=== PATIENT | female | born 1955 | race African-American/Black ===

== ENCOUNTER 2018-07-28 06:50 | Day surgery (SDC) | payer OTHER ==
[~2018-07-28] VITALS: Ht 160 cm; Wt 73.6 kg
--- NOTE | ~2018-07-28 | OP ---
PATIENT NAME: YOSELYN VALDES MEDICAL RECORD: [id number] :51 LOCATION:[facility] ADMISSION DATE: SURGEON: KELLY CARROLL DO DATE OF OPERATION: 07/28/2018 PROCEDURE: Colonoscopy. INDICATIONS FOR PROCEDURE: Colorectal cancer screening. SCOPE: Olympus video pediatric colonoscope. MEDICATIONS: Propofol 220 mg IV per anesthesia. WITHDRAWAL TIME: 13 minutes. ESTIMATED BLOOD LOSS: None. COMPLICATIONS: None. FINDINGS: Informed consent was given. The patient was made comfortable with the above medication. After reaching an adequate level of sedation by slow IV push, the patient was placed on her left side. A digital rectal examination was performed and was normal. The endoscope was then advanced under direct visualization through the rectum to the cecum, confirmed by the presence of the appendiceal orifice and ileocecal valve. The endoscope was slowly withdrawn and mucosa was carefully examined. The prep quality was good. There were no polyps visualized on today's examination. There were scattered diverticulosis throughout the colon, but this was very mild. Retroflexion was performed in the rectum with a normal-appearing rectal wall. The endoscope was withdrawn from the patient. The patient tolerated the procedure well, and there were no complications. IMPRESSION: 1. Mild diverticulosis, characterized by a few scattered diverticula throughout the colon. 2. Otherwise normal colonoscopy. PLAN AND RECOMMENDATIONS: 1. Discharge home when recovery parameters are met. 2. High-fiber diet. 3. Continue current medications. 4. Recall colonoscopy in 10 years for continued colorectal cancer screening. TRANSINT:[id number] Voice Confirmation ID: [id number] DOCUMENT ID: [id number] KELLY CARROLL DO at 1300 CC: [id number] DICTATION DATE: 07/28/1842 [facility] [employer]: 07/28/18 [id number] [facility] 07/28/18 [place] [id number]
[2018-07-28 07:12] LABS: BASOPHILS 0.6 % (0-2); EOSINOPHILS 3.9 % (0-7); HEMATOCRIT 41.8 % (36.0-48.0); HEMOGLOBIN 14.2 g/dL (12-16); IMMATURE GRANULOCYTES 0.1 % (0-5); LYMPHOCYTES 27.7 % (15-50); MCH 27.8 pg (26.0-34.0); MCV 81.8 fL (80.0-100.0); MEAN PLATELET VOLUME 8.8 fL (7.4-10.4); MONOCYTES 7.2 % (2-11); NEUTROPHILS 60.5 % (40-80); PLATELET COUNT 192 10x3/uL (130-400); RBC 5.11 10x6/uL (4.00-5.40); RDW 14.2 % (11.5-14.5); WBC 9.8 10x3/uL (4.8-10.8)
[2018-07-28 07:25] LABS: ANION GAP 10.1 mmol/L (8-16); CALCIUM 9.1 mg/dL (8.5-10.1); CARBON DIOXIDE 32.4 mmol/L (21.0-32.0); POTASSIUM - SERUM 3.5 mmol/L (3.5-5.1)
[2018-07-28] MEDS ORDERED: LISINOPRIL10 MG PO (08:08)
[2018-07-28] MEDS ORDERED: SULAR8.5 MG PO (08:08)
[2018-07-28] MEDS ORDERED: ZOCOR40 MG PO (08:09)
[2018-07-28] MEDS ORDERED: HCTZ25 MG PO (08:09)
[2018-07-28] MEDS ORDERED: ZETIA10 MG PO (08:09)
[2018-07-28] MEDS ORDERED: OS-CAL500 MG PO (08:10)
[2018-07-28] MEDS ORDERED: FEXOFENADINE H180 MG PO (08:11)
[2018-07-28] MEDS ORDERED: L-LYSINE500 M1 PO (08:11)
[2018-07-28] MEDS ORDERED: VITAMIN D31000 UNI2 PO (08:11)
[2018-07-28] MEDS ORDERED: ZIPSOR25 MG PO (08:12)
[2018-07-28] MEDS ORDERED: FLUTICASONE PRO16 GM (08:13)
[2018-07-28] MEDS ORDERED: VALTREX1000 MG PO (08:13)
[2018-07-28] MEDS ORDERED: FLUOROMETHOLONE5 ML OP (08:14)
[2018-07-28 08:19] VITALS: BP 111/67; Ht 160 cm; Wt 73.6 kg
== END 2018-07-28 10:34 | disposition home or self-care (01) ==
LOC: D.OPS 06:50
PROVIDERS: Anesthesiology
DX: Z12.11 Encounter for screening for malignant neoplasm of colon (principal); K57.30 Diverticulosis of large intestine without perforation or abscess without bleeding; Z01.812 Encounter for preprocedural laboratory examination